=== PATIENT | female | born 1995 | race African-American/Black ===

== ENCOUNTER 2018-09-09 23:54 | Emergency (ER) | payer MEDICAID ==
[~2018-09-09] VITALS: Ht 157.5 cm; Wt 91.0 kg
[~2018-09-09 23:54] MED LIST: ACET-2178 PO; IBUP-2028 PO
[2018-09-10] MEDS ORDERED: IPRATROPIUM BROMIDE (0.02%) 0.5MG/2.5ML NEB HHN STA (02:24)
[2018-09-10] MEDS ORDERED: ALBUTEROL (0.083%) 2.5MG/3ML NEB HHN STA (02:24)
[2018-09-10] MEDS ORDERED: PREDNISONE 20MG TABLET PO STA (02:24)
[2018-09-10 04:08] VITALS: BP 121/77
== END 2018-09-10 04:11 | disposition home or self-care (01) ==
LOC: ER 23:57
DX: J45.909 Unspecified asthma, uncomplicated (principal); J06.9 Acute upper respiratory infection, unspecified; J20.9 Acute bronchitis, unspecified
CPT/HCPCS: 71045; 94640; 99283; J7512; J7611